=== PATIENT | male | born 1935 | race Caucasian/White ===

== ENCOUNTER → 2016-09-23 | Outpatient (CLI) | payer MEDICARE, BC ==
[~2016-09-23] MED LIST: ACTOS PO; ASPIRIN PO; BENADRYL PO; CERTAGEN PO; COREG PO; DARVOCET-N 1001 TA1 PO; DIOVAN PO; DYAZIDE 37.5/251 CAP PO; GLUCOTROL PO; LORTAB 10-5001 EACH PO; OSTEO BI-FLEX PO; SYNTHROID PO; VITAMIN C PO; WAL-ZYR10 MG PO; ZETIA PO; ZOCOR PO
--- NOTE | ~2016-09-23 | US84 ---
[id number] [facility] [address] [place], [place] [address] [id number] O MR#: [id number] Acc #: [id number] NAME: ERAN TRIMBLE : 1935 SEX: M STUDY DATE/TIME: 09/23/2016 14:36 UNIT: [facility] ROOM: STUDY DESCRIPTION: US LE Veins Complete Rodríguez Stdy Attending Physician: Javier Desai M.D. Referring Physician: Javier Desai M.D. Ordering Physician: Javier Desai M.D. Primary Care Physician: Javier Desai M.D. MEDICAL IMAGING REPORT This report is preliminary unless electronic signature is present EXAM Bilateral lower extremity venous duplex Doppler 09/23/2016 INDICATIONS Bilateral lower extremity swelling for 2-3 days. TECHNIQUE Venous ultrasound examination of both lower extremities was performed using grayscale, spectral Doppler and color flow Doppler imaging. FINDINGS The examination is negative. There is no evidence of deep venous thrombus from the groin to the lower calf bilaterally. Visualized greater saphenous veins are also patent. IMPRESSION Negative examination. No evidence of lower extremity deep venous thrombosis. Dictated by... Martin Camp M.D. THIS IS AN ELECTRONICALLY VERIFIED REPORT Martin Camp M.D. at 09/27/2016 9:42 AM Emmie TD: 09/23/2016 17:35 JOB #: [id number] MEDICAL IMAGING REPORT Page 1 of 1 COPY
== END | disposition home or self-care (01) ==
LOC: CNIV 13:58
DX: R60.0 Localized edema (principal); Z98.890 Other specified postprocedural states
CPT/HCPCS: 93970